=== PATIENT | female | born 1990 | race Caucasian/White ===

== ENCOUNTER 2017-04-28 22:20 | Emergency (ER) | payer MEDICAID ==
[2017-04-29] MEDS: ACETAMINOPHEN 500 MG TAB PO (00:37)
[2017-04-29] MEDS: ONDANSETRON 4 MG INJ IV (00:37)
[2017-04-29] MEDS: SOD CHLORIDE 0.9% 1,000 ML IV (00:40)
[2017-04-29 01:23] LABS: ADD MAN DIFF? NO
[2017-04-29 01:25] LABS: BASOPHILS % 0.1 % (0.0-2.0); EOSINOPHILS # 0.1 10^3/ul (0.0-0.5); EOSINOPHILS % 1.5 % (0.0-7.0); HEMATOCRIT 32.4 % (37.0-47.0); HEMOGLOBIN 11.2 g/dl (12.0-16.0); LYMPHOCYTES # 1.7 10^3/ul (0.8-2.9); LYMPHOCYTES % 20.8 % (15.0-51.0); MEAN CORPUSCULAR HEMOGLOBIN 29.3 pg (29.0-33.0); MEAN CORPUSCULAR HGB CONC 34.6 g/dl (32.0-37.0); MEAN CORPUSCULAR VOLUME 84.8 fl (82.0-101.0); MONOCYTE # 0.4 10^3/ul (0.3-0.9); MONOCYTES % 5.2 % (0.0-11.0); NEUTROPHIL # 5.7 10^3/ul (1.6-7.5); NEUTROPHILS % 72.1 % (39.0-77.0); PLATELET COUNT 238 10^3/UL (140-415); RED BLOOD COUNT 3.82 10^6/ul (4.20-5.40); RED CELL DISTRIBUTION WIDTH 14.3 % (11.5-14.5)
[2017-04-29 01:45] LABS: ALANINE AMINOTRANSFERASE 23 IU/L (13-69); ALBUMIN 4.3 g/dl (3.3-4.9); ALBUMIN/GLOBULIN RATIO 1.16; ALKALINE PHOSPHATASE 55 IU/L (42-121); ANION GAP 16 (8-16); ASPARTATE AMINO TRANSFERASE 32 IU/L (15-46); BILIRUBIN,INDIRECT 0.2 mg/dl (0-1.1); BILIRUBIN,TOTAL 0.2 mg/dl (0.2-1.3); BLOOD UREA NITROGEN 13 mg/dl (7-20); CALCIUM 9.6 mg/dl (8.4-10.2); CARBON DIOXIDE 21 mmol/L (21-31); CHLORIDE 103 mmol/L (97-110); CREATININE 0.47 mg/dl (0.44-1.00); GLUCOSE 89 mg/dl (70-220); POTASSIUM 3.9 mmol/L (3.5-5.1); SODIUM 136 mmol/L (135-144)
[2017-04-29 01:46] LABS: ADD UMIC YES; UR ASCORBIC ACID NEGATIVE (NEGATIVE); UR BACTERIA FEW /HPF (NONE SEEN); UR BILIRUBIN (Dip) NEGATIVE (NEGATIVE); UR BLOOD (Dip) 1+ mg/dL (NEGATIVE); UR CLARITY SLIGHTLY CLOUDY (CLEAR); UR COLOR YELLOW (YELLOW); UR GLUCOSE (Dip) NEGATIVE (NEGATIVE); UR KETONES (Dip) NEGATIVE (NEGATIVE); UR LEUKOCYTE ESTERASE (Dip) 3+ Leu/ul (NEGATIVE); UR NITRITE (Dip) NEGATIVE (NEGATIVE); UR RBC 3 /HPF (0-5); UR SPECIFIC GRAVITY (Dip) 1.014 (1.003-1.030); UR SQUAMOUS EPITHELIAL CELL MODERATE /HPF (FEW); UR TOTAL PROTEIN (Dip) NEGATIVE (NEGATIVE); UR UROBILINOGEN (Dip) NEGATIVE (NEGATIVE); UR WBC 10 /HPF (0-5)
[2017-04-29] MEDS: CEPHALEXIN 500 MG CAP PO (02:48)
== END 2017-04-29 04:45 | disposition home or self-care (01) ==
LOC: FTE 22:20
DX: O23.41 Unspecified infection of urinary tract in pregnancy, first trimester (principal); R10.2 Pelvic and perineal pain; Z3A.10 10 weeks gestation of pregnancy
CPT/HCPCS: 36415; 76801; 80053; 81001; 84702; 85025; 86900; 86901; 87086; 96361; 96374; 99285-25

== ENCOUNTER 2017-07-12 16:45 | Emergency (ER) | payer MEDICAID ==
[2017-07-12 18:40] LABS: URINE BLOOD (Dip) POC Trace-lysed (NEGATIVE); URINE GLUCOSE (Dip) POC Negative (NEGATIVE); URINE KETONES (Dip) POC 1+ (NEGATIVE); URINE LEUKOCYTE EST (Dip) POC Negative (NEGATIVE); URINE NITRITE (Dip) POC Negative (NEGATIVE); URINE TOTAL PROTEIN POC Negative (NEGATIVE)
[2017-07-12] MEDS: predniSONE 20 MG TAB PO (18:47)
[2017-07-12] MEDS: ALBUTEROL 0.083% (NEB) 2.5 MG/3 ML AMP HHN (18:53)
== END 2017-07-12 20:30 | disposition home or self-care (01) ==
LOC: FTE 20:30
DX: O99.512 Diseases of the respiratory system complicating pregnancy, second trimester (principal); J06.9 Acute upper respiratory infection, unspecified; R07.9 Chest pain, unspecified; R05 Cough; Z3A.20 20 weeks gestation of pregnancy
CPT/HCPCS: 81003; 93005; 94664; 99284-25

== ENCOUNTER 2017-10-29 07:55 | Outpatient (CLI) | payer MEDICAID ==
[2017-10-29] MEDS: LACTATED RINGER'S 1,000 ML IV* (09:18)
[2017-10-29] MEDS: TERBUTALINE 1 MG/ML INJ SC (09:18)
[2017-10-29 09:29] LABS: ADD UMIC YES; UR ASCORBIC ACID NEGATIVE (NEGATIVE); UR BACTERIA MODERATE /HPF (NONE SEEN); UR BILIRUBIN (Dip) NEGATIVE (NEGATIVE); UR BLOOD (Dip) 1+ mg/dL (NEGATIVE); UR CLARITY CLOUDY (CLEAR); UR COLOR YELLOW (YELLOW); UR GLUCOSE (Dip) NEGATIVE (NEGATIVE); UR KETONES (Dip) NEGATIVE (NEGATIVE); UR LEUKOCYTE ESTERASE (Dip) 3+ Leu/ul (NEGATIVE); UR NITRITE (Dip) NEGATIVE (NEGATIVE); UR RBC 7 /HPF (0-5); UR SQUAMOUS EPITHELIAL CELL MODERATE /HPF (FEW); UR TOTAL PROTEIN (Dip) NEGATIVE (NEGATIVE); UR UROBILINOGEN (Dip) NEGATIVE (NEGATIVE); UR WBC > 182 /HPF (0-5)
== END 2017-10-29 10:47 | disposition home or self-care (01) ==
LOC: OBT 07:55 → L-D 07:56 → OBT 10:47
DX: O62.9 Abnormality of forces of labor, unspecified (principal); Z3A.37 37 weeks gestation of pregnancy
CPT/HCPCS: 76815; 76818; 81001; 96360; 96372

== ENCOUNTER 2017-11-09 11:36 | Outpatient (CLI) | payer MEDICAID | END 2017-11-09 13:45 | disposition home or self-care (01) | LOC: OBT 11:36 → SDS 11:36 → L-D 11:36 → OBT 13:45 | DX: O36.8130 Decreased fetal movements, third trimester, not applicable or unspecified (principal); Z3A.38 38 weeks gestation of pregnancy | CPT/HCPCS: 76818 ==

== ENCOUNTER 2017-11-21 11:48 | Inpatient (IN) | payer MEDICAID ==
[2017-11-21] MEDS ORDERED: OXYCODONE/ACETAMINOPHEN (5/325) TAB PO (16:30)
[2017-11-21] MEDS ORDERED: MISOPROSTOL 200 MCG TAB PR (16:30)
[2017-11-21] MEDS ORDERED: OXYTOCIN 30 UNITS/LR 500 ML IV ×2 (16:30)
[2017-11-21] MEDS ORDERED: LIDOCAINE 1% (MPF) 30 ML INJ INJ (16:30)
[2017-11-21] MEDS ORDERED: CARBOPROST 250 MCG INJ IM (16:30)
[2017-11-21] MEDS ORDERED: METHYLERGONOVINE 0.2 MG INJ IM (16:30)
[2017-11-21 16:57] LABS: ADD MAN DIFF? NO
[2017-11-21 16:59] LABS: BASOPHILS % 0.1 % (0.0-2.0); EOSINOPHILS % 0.1 % (0.0-7.0); HEMATOCRIT 35.2 % (37.0-47.0); HEMOGLOBIN 11.5 g/dl (12.0-16.0); LYMPHOCYTES % 14.3 % (15.0-51.0); MEAN CORPUSCULAR HEMOGLOBIN 28.8 pg (29.0-33.0); MEAN CORPUSCULAR HGB CONC 32.7 g/dl (32.0-37.0); MEAN PLATELET VOLUME 10.2 fl (7.4-10.4); MONOCYTE # 0.3 10^3/ul (0.3-0.9); MONOCYTES % 3.7 % (0.0-11.0); NEUTROPHIL # 5.9 10^3/ul (1.6-7.5); NEUTROPHILS % 81.4 % (39.0-77.0); PLATELET COUNT 172 10^3/UL (140-415); RED CELL DISTRIBUTION WIDTH 15.1 % (11.5-14.5)
[2017-11-21 16:59] LABS: WHITE BLOOD COUNT 7.3 10^3/ul (4.8-10.8)
[2017-11-21] MEDS: MISOPROSTOL 25 MCG CAPSULE PO ×2 (17:12→22:03)
[2017-11-21] MEDS: LACTATED RINGER'S 1,000 ML IV* ×2 (17:12→19:15)
[2017-11-21 17:21] LABS: INR 0.84; PROTIME 11.6 Sec (11.9-14.9); PT RATIO 0.9
[2017-11-21 17:22] LABS: PARTIAL THROMBOPLASTIN TIME 25.2 Sec (25.0-35.0)
[2017-11-21 22:29] LABS: RAPID PLASMA REAGIN NONREACTIVE (NR)
[2017-11-22] MEDS: MISOPROSTOL 25 MCG CAPSULE PO (02:30)
[2017-11-22] MEDS: LACTATED RINGER'S 1,000 ML IV* ×2 (03:30→04:52)
[2017-11-22] MEDS ORDERED: FENTAnyl 2MCG/ML-ROPIV 0.2% 100 ML BAG EPI (04:00)
[2017-11-22] MEDS ORDERED: NALOXONE (0.4 MG/ML) INJ IV (04:00)
[2017-11-22] MEDS ORDERED: EPHEDrine SULFATE 50 MG/5 ML SYG IV (04:00)
[2017-11-22] MEDS ORDERED: ONDANSETRON 4 MG INJ IV ×2 (04:00→06:00)
[2017-11-22] MEDS ORDERED: DIPHENHYDRAMINE 50 MG INJ IV (04:00)
[2017-11-22] MEDS ORDERED: FENTAnyl 2MCG/ML-ROPIV 0.2% 100 ML (04:05)
[2017-11-22] MEDS: OXYTOCIN 30 UNITS/LR 500 ML IV ×3 (05:56→12:52)
[2017-11-22] MEDS ORDERED: DIBUCAINE 1% 30 GM OINT PR (06:00)
[2017-11-22] MEDS ORDERED: NACL 0.9% 3 ML SYG IV (06:00)
[2017-11-22] MEDS ORDERED: CARBOPROST 250 MCG INJ IM (06:00)
[2017-11-22] MEDS ORDERED: SENNA/DOCUSATE NA (8.6MG/50MG) TAB PO (06:00)
[2017-11-22] MEDS ORDERED: OXYTOCIN 30 UNITS/LR 500 ML IV (06:00)
[2017-11-22] MEDS ORDERED: MISOPROSTOL 200 MCG TAB PR (06:00)
[2017-11-22] MEDS ORDERED: METHYLERGONOVINE 0.2 MG INJ IM (06:00)
[2017-11-22] MEDS ORDERED: DIPHENHYDRAMINE 25 MG CAP PO (06:00)
[2017-11-22] MEDS: SENNA/DOCUSATE NA (8.6MG/50MG) TAB PO ×2 (09:30→20:49)
[2017-11-22] MEDS: BENZOCAINE 20% 56 ML SPRAY TOP (09:34)
[2017-11-22] MEDS: WITCH HAZEL/GLYCERIN PAD PR (09:34)
[2017-11-22] MEDS: LANOLIN 7 GM TUBE TOP (09:35)
[2017-11-22 13:03] LABS: HEPATITIS B SURFACE ANTIGEN NEGATIVE (NEGATIVE)
[2017-11-22] MEDS: ACETAMINOPHEN 325 MG TAB PO (21:04)
[2017-11-23] MEDS: ACETAMINOPHEN 325 MG TAB PO ×4 (03:59→23:29)
[2017-11-23 07:17] LABS: ADD MAN DIFF? NO
[2017-11-23 07:20] LABS: WHITE BLOOD COUNT 6.9 10^3/ul (4.8-10.8)
[2017-11-23 07:20] LABS: BASOPHILS % 0.1 % (0.0-2.0); EOSINOPHILS % 0.4 % (0.0-7.0); HEMATOCRIT 31.8 % (37.0-47.0); HEMOGLOBIN 10.4 g/dl (12.0-16.0); LYMPHOCYTES # 1.4 10^3/ul (0.8-2.9); MEAN CORPUSCULAR HEMOGLOBIN 28.7 pg (29.0-33.0); MEAN CORPUSCULAR HGB CONC 32.7 g/dl (32.0-37.0); MEAN CORPUSCULAR VOLUME 87.8 fl (82.0-101.0); MEAN PLATELET VOLUME 10.2 fl (7.4-10.4); MONOCYTE # 0.4 10^3/ul (0.3-0.9); MONOCYTES % 5.8 % (0.0-11.0); NEUTROPHIL # 5.1 10^3/ul (1.6-7.5); NEUTROPHILS % 73.3 % (39.0-77.0); PLATELET COUNT 147 10^3/UL (140-415); RED BLOOD COUNT 3.62 10^6/ul (4.20-5.40); RED CELL DISTRIBUTION WIDTH 15.3 % (11.5-14.5)
[2017-11-23] MEDS: WITCH HAZEL/GLYCERIN PAD PR (08:12)
[2017-11-23] MEDS: BENZOCAINE 20% 56 ML SPRAY TOP (08:13)
[2017-11-23] MEDS: SENNA/DOCUSATE NA (8.6MG/50MG) TAB PO ×2 (08:13→21:23)
[2017-11-24] MEDS: ACETAMINOPHEN 325 MG TAB PO (05:44)
[2017-11-24] MEDS: SENNA/DOCUSATE NA (8.6MG/50MG) TAB PO (09:17)
== END 2017-11-24 16:12 | disposition home or self-care (01) | DRG 775 ==
LOC: OBT 11:48 → PP1 11-22 08:12 → L-D 11:48 → OBT 15:15 → L-D 15:15
PROVIDERS: Obstetrics & Gynecology
PROC: 10E0XZZ Delivery of Products of Conception, External Approach (ICD-10-PCS; principal; 2017-11-22)
PROC: 0KQM0ZZ Repair Perineum Muscle, Open Approach (ICD-10-PCS; 2017-11-22)
DX: O48.0 Post-term pregnancy (principal); Z37.0 Single live birth; Z3A.40 40 weeks gestation of pregnancy; O70.1 Second degree perineal laceration during delivery
CPT/HCPCS: 62319; 76815; 76818; 85025; 85610; 85730; 86592; 86850; 86900; 86901; 87340